=== PATIENT | male | born 1950 | race Caucasian/White ===

== ENCOUNTER 2023-02-04 16:44 | Emergency (ER) | payer OTHER ==
[2023-02-04 17:08] VITALS: BP 144/75; PULSE 60; RESP 18; TEMP 98.6; BMI 33.4
== END 2023-02-04 18:12 | disposition home or self-care (01) ==
LOC: FER 16:44
DX: Z76.0 Encounter for issue of repeat prescription (principal); E10.9 Type 1 diabetes mellitus without complications
CPT/HCPCS: 99281-25